=== PATIENT | male | born 1935 | race Caucasian/White ===

== ENCOUNTER 2022-10-01 14:53 | Inpatient (IN) | payer MEDICARE, OTHER ==
[~2022-10-01] VITALS: Ht 182.9 cm; Wt 85.8 kg
--- NOTE | 2022-10-01 14:55 | NUR ---
RECEVED PT 86 YRS MALE CAME BY HEIDI FROM HOME C/O SYNCOPY X2 TODAY AWAKE AND ALERT respiration spon and easy
--- NOTE | 2022-10-01 15:00 | NUR ---
SEEN BY DR. MORRIS
--- NOTE | 2022-10-01 15:05 | NUR ---
BLOOD DROW BY LAB TACH
--- NOTE | 2022-10-01 15:10 | NUR ---
C XRAY DONE AT BED SIDE
[2022-10-01] MEDS ORDERED: IV NS 0.9% 1,000 ML BAG IV ONE (15:30)
[2022-10-01 15:32] LABS: BASOPHILS % (AUTO) 0.5 % (0.0-2.0); EOSINOPHILS % (AUTO) 0.9 % (0.0-6.0); HEMATOCRIT 39 % (39-51); HEMOGLOBIN 12.6 g/dL (13.5-17.5); LYMPHOCYTES # (AUTO) 1.9 K/uL (0.8-4.8); LYMPHOCYTES % (AUTO) 23.2 % (20.0-44.0); MEAN CORPUSCULAR HGB CONC 32 g/dl (31.0-36.0); MEAN CORPUSCULAR VOLUME 84 fL (80-96); MONOCYTES # (AUTO) 0.8 K/uL (0.1-1.30); MONOCYTES % (AUTO) 9.9 % (2.0-12.0); NEUTROPHILS # (AUTO) 5.4 K/uL (1.8-8.9); NEUTROPHILS % (AUTO) 65.5 % (43.0-81.0); PLATELET COUNT (AUTO) 208 K/uL (150-450); RED BLOOD CELL COUNT(AUTO) 4.67 MIL/uL (4.5-6.0); WHITE BLOOD COUNT (AUTO) 8.3 K/uL (4.3-11.0)
[2022-10-01] MEDS ORDERED: AMLO-212 PO ×2 (15:39→19:12)
[2022-10-01] MEDS ORDERED: LEVO125T8 PO (15:39)
[2022-10-01] MEDS ORDERED: ROSU20TA32 PO (15:39)
[2022-10-01] MEDS ORDERED: ALLO300T2 PO (15:39)
[2022-10-01 15:42] LABS: CARBON DIOXIDE 25 mmol/L (21-32); CHLORIDE 106 mmol/L (98-107); CREATININE 1.6 mg/dL (0.6-1.3); GLUCOSE 116 mg/dL (74-106); POTASSIUM 3.7 mmol/L (3.5-5.1); SODIUM SERUM 141 mmol/L (136-145); UREA NITROGEN, BLOOD 20 mg/dL (7-18)
--- NOTE | 2022-10-01 15:50 | NUR ---
MOVE SHEET SUBMITTED.
[2022-10-01 15:55] LABS: ALANINE AMINOTRANSFERASE 24 U/L (12-78); ALBUMIN 3.3 g/dL (3.4-5.0); ALKALINE PHOSPHATASE 47 U/L (46-116); ASPARTATE AMINOTRANSFERASE 21 U/L (15-37); BILIRUBIN,DIRECT 0.2 mg/dL (0.0-0.2); BILIRUBIN,TOTAL 0.9 mg/dL (0.2-1.0); TOTAL PROTEIN, SERUM 6.6 g/dL (6.4-8.2)
--- NOTE | 2022-10-01 16:05 | NUR ---
COVID SWAB TAKEN
[2022-10-01] MEDS ORDERED: MAG HYDROX/AL HYDROX/SIMETH 30 ML UDC PO PRN (17:00)
[2022-10-01] MEDS ORDERED: Z GUARD REMEDY 4 OZ OINT TP PRN (17:00)
[2022-10-01] MEDS ORDERED: TEMAZEPAM 15 MG CAPSULE PO PRN (17:00)
[2022-10-01] MEDS ORDERED: ONDANSETRON HCL/PF 4 MG/2 ML VIAL IVP PRN (17:00)
[2022-10-01] MEDS ORDERED: ENOXAPARIN SODIUM 30 MG/0.3 ML DISP.SYRIN SQ SCH (17:00)
[2022-10-01] MEDS ORDERED: HYDROCODONE/APAP 5/325MG TABLET PO PRN (17:00)
[2022-10-01] MEDS ORDERED: ACETAMINOPHEN 325 MG TABLET PO PRN (17:00)
[2022-10-01] MEDS ORDERED: MAGNESIUM HYDROXIDE 30 ML UDC PO PRN (17:00)
--- NOTE | 2022-10-01 17:00 | NUR ---
GOT BED 310-2
--- NOTE | 2022-10-01 17:30 | NUR ---
PT EAT SWALLOW NO DIFFECULTY
[2022-10-01] MEDS: ATORVASTATIN 40 MG TABLET PO SCH ×2 (18:00→21:24)
[2022-10-01] MEDS: IV NS 0.9% 1,000 ML IV PRN (18:15)
[2022-10-01 18:21] VITALS: BP_SYST 122; BP_SYST 143; BP_SYST 145; BP_DIAS 80; BP_DIAS 82; BP_DIAS 83
--- NOTE | 2022-10-01 18:47 | NUR ---
RN NOTES LIPITOR 40MG TAB DUE 1800 NOT GIVEN, DUPLICATE ORDER. CATCH BASIN CLEANER NURSE WILL GIVE MEDICATION AT 2200.
--- NOTE | 2022-10-01 18:48 | NUR ---
CONTRACT TECHNICIANRN RESEARCH/CLOSING NOTES PT ADMITTED TO UNIT VIA [facility] AT 1805 ACCOMPANIED BY Keisha BACON WITH DX OF SYNCOPE WITH SECONDARY DX OF LACTIC ACIDOSIS. PT IS A/O X4, ABLE TO MAKE NEEDS KNOWN, NO C/O PAIN OR DISCOMFORTS AT THIS TIME. PT ORIENTED TO STAFF AND ROOM. V/S TAKEN, STABLE AND RECORDED. ORTHOSTATIC BP TAKEN AND RECORDED. PT ON ROOM AIR, TOLERATING WELL, BREATHING EVEN AND UNLABORED, NO ACUTE RESPIRATORY DISTRESS NOTED. SKIN IS INTACT, PHOTO OF DISCOLORATION ON LLE TAKEN AND FILED ON HIS CHART. IV ACCESS ON RIGHT AC #18G INTACT AND PATENT, IVF OF NS @ 75ML/HR INITIATED PER MD ORDER. LUNGS CLEAR ON AUSCULTATION. ABDOMEN SOFT, FIRM AND NON-DISTENDED WITH POSITIVE BOWEL SOUNDS PRESENT. PT PLACED ON EXTERNAL CONSULTING PRACTICE MANAGER WITH CURRENT READING OF NSR WITH 1ST DEGREE HEART BLOCK, HR 70BPM, NO C/O CARDIAC DISTRESS VOICED. SAFETY PRECAUTIONS IMPLEMENTED: BED IN LOWEST LOCKED POSITION, SIDE RAILS UP X2, CALL LIGHT AND TRAY TABLE PLACED W/I EASY REACH OF PT. WILL CONTINUE TO MONITOR PT.
--- NOTE | 2022-10-01 19:30 | NUR ---
JACQUARD LOOM CARPET WEAVER OPENING NOTE RECEIVED PATIENT, AWAKE, ALERT AND ORIENTED X4 WITH FAMILY AT BEDSIDE. AFEBRILE AND NOT IN ANY FORM OF ACUTE DISTRESS. BREATHING EVEN AND NON LABORED. NO C/O PAIN OR DISCOMFORT AT THIS TIME. ON TELEMONITORING WITH CURRENT READING OF SR WITH 1ST DEGREE BLOCK 70. WITH IV ACCESS ON RAC 18G RUNNING WITH NS AT 75ML/HR. SAFETY MEASURES IN PLACE. KEPT BED IN LOCKED AND IN LOW POSITION. SIDE RAILS UP X2. ADVISED TO USE THE CALL LIGHT WHEN IN NEED OF ASSISTANCE.
[2022-10-01 20:00] VITALS: BP 140/82
--- NOTE | 2022-10-01 21:24 | NUR ---
PREMIUM AUDITOR NOTE PATIENT REFUSED TO TAKE LIPITOR AND SAID THAT HE ALREADY TOOK HIS CHOLESTEROL PILL AT HOME PRIOR TO ADMISSION. HIS CLAIM WAS ALSO BACKED UP BY HIS WHO WAS AT BEDSIDE EARLIER DURING ROUNDS.
[2022-10-01 21:50] LABS: BILIRUBIN,URINE NEGATIVE (NEGATIVE); COLOR,URINE YELLOW (YELLOW); LEUKOCYTE ESTERASE ,URINE NEGATIVE (NEGATIVE); NITRITE, URINE NEGATIVE (NEGATIVE); PROTEIN,URINE NEGATIVE (NEGATIVE); UGLUCOSE NEGATIVE (NEGATIVE); UROBILINOGEN,URINE 0.2 EU/dL (0.2)
[2022-10-01 22:01] LABS: BACTERIA,URINE None seen /HPF (None Seen); RBC,URINE 0-2 /HPF (0-2); URINE AMORPHOUS PHOSPHATES Few /HPF (None Seen); WBC,URINE 0-2 /HPF (0-3)
[2022-10-02] VITALS: BP 142/78
[2022-10-02 04:00] VITALS: BP 144/89
[2022-10-02 05:50] LABS: BASOPHILS % (AUTO) 0.4 % (0.0-2.0); EOSINOPHILS % (AUTO) 1.2 % (0.0-6.0); HEMATOCRIT 39 % (39-51); HEMOGLOBIN 12.6 g/dL (13.5-17.5); LYMPHOCYTES # (AUTO) 1.6 K/uL (0.8-4.8); LYMPHOCYTES % (AUTO) 21.8 % (20.0-44.0); MEAN CORPUSCULAR HGB CONC 33 g/dl (31.0-36.0); MEAN CORPUSCULAR VOLUME 84 fL (80-96); MONOCYTES # (AUTO) 0.9 K/uL (0.1-1.30); MONOCYTES % (AUTO) 12.6 % (2.0-12.0); NEUTROPHILS # (AUTO) 4.8 K/uL (1.8-8.9); PLATELET COUNT (AUTO) 182 K/uL (150-450); RED BLOOD CELL COUNT(AUTO) 4.58 MIL/uL (4.5-6.0); WHITE BLOOD COUNT (AUTO) 7.5 K/uL (4.3-11.0)
[2022-10-02 06:09] LABS: CALCIUM, SERUM 8.6 mg/dL (8.5-10.1); CREATININE 1.1 mg/dL (0.6-1.3); MAGNESIUM 2.1 mg/dL (1.8-2.4); PHOSPHORUS 3.1 mg/dL (2.5-4.9); POTASSIUM 3.3 mmol/L (3.5-5.1)
[2022-10-02] MEDS: IV NS 0.9% 1,000 ML IV PRN (06:15)
[2022-10-02 06:21] LABS: THYROID STIMULATING HORMONE 0.12 uIU/mL (0.358-3.74)
--- NOTE | 2022-10-02 06:30 | NUR ---
ESTATE MANAGER CLOSING NOTE PATIENT IN BED, ASLEEP BUT EASY TO AROUSE AND RESPONSIVE. ALERT AND ORIENTED X4. AFEBRILE AND NOT IN ANY FORM OF ACUTE DISTRESS. BREATHING EVEN AND NON LABORED. NO C/O PAIN OR DISCOMFORT AT THIS TIME. ON TELEMONITORING WITH CURRENT READING OF SR 67 WITH 1ST DEGREE AVB. WITH IV ACCESS ON RAC 18G RUNNING WITH NS AT 75ML/HR. SAFETY MEASURES IN PLACE. KEPT BED IN LOCKED AND IN LOW POSITION. SIDE RAILS UP X2. ADVISED TO USE THE CALL LIGHT WHEN IN NEED OF ASSISTANCE. ALL NURSING NEEDS ATTENDED. ENDORSED TO INCOMING SHIFT FOR CONTINUITY OF CARE.
[2022-10-02] MEDS ORDERED: PANTOPRAZOLE 40 MG TABLET.DR PO SCH (07:30)
[2022-10-02 08:00] VITALS: BP 146/84
--- NOTE | 2022-10-02 08:03 | NUR ---
RN OPENING NOTE RECEIVED PATIENT IN BED, AO X 4. ABLE TO RESPONDS PHYSICAL STIMULI. RESPIRATORY EVEN AND UNLABORED ON ROOM AIR. IN NO ACUTE DISTRESS OBSERVED. SKIN IS WARM TO TOUCH, KEEP CLEAN/DRY. KEPT ELEVATED HOB FOR ASPIRATION PRECAUTION/ENSURE AIRWAY, AND LOWEST BED POSITIONED. BED ALARM IS ON AT ALL THE TIME FOR SAFETY. CALL LIGHT WITHIN REACH, WILL CONTINUE TO MONITOR
[2022-10-02] MEDS: POTASSIUM CHLORIDE 20 MEQ TAB.PRT.SR PO SCH ×2 (08:49→09:27)
[2022-10-02 09:00] VITALS: BP_SYST 113; BP_SYST 118; BP_DIAS 79; BP_DIAS 81
[2022-10-02] MEDS ORDERED: AMLODIPINE BESYLATE 5 MG TABLET PO SCH (09:00)
[2022-10-02] MEDS ORDERED: ALLOPURINOL 100 MG TABLET PO SCH (09:00)
[2022-10-02] MEDS ORDERED: LEVOTHYROXINE SODIUM 125 MCG TABLET PO SCH (09:00)
--- NOTE | 2022-10-02 13:00 | NUR ---
PATIENT D/C TO HOME, GIVEN DISCHARGE INSTRUCTION INCLUDE MODIFIED DOSAGE OF LEVOTHYROXINE, FOLLOW UP PRIMARY MD AND DR. VIGIL IN ONE WEEK (DR. VIGIL INFO. ATTACHED IN THE EXIT CARE). PATIENT IN STABLE CONDITION, IN NO DISTRESS OBSERVED. REMOVED IV LINE AND ID BAND BEFORE PATIENT LEAVE. PATIENT LEFT FACILITY ACCOMPANIED BY STAFF TO THE PRIVATE CAR.
== END 2022-10-02 13:05 | disposition home or self-care (01) | DRG 640 ==
LOC: ER 15:10 → TELE 17:47
PROVIDERS: ADMIT Nurse Practitioner Acute Care; ATTEND Nurse Practitioner Acute Care
DX: E86.0 Dehydration (principal); N17.0 Acute kidney failure with tubular necrosis; G91.2 (Idiopathic) normal pressure hydrocephalus; Z20.822 Contact with and (suspected) exposure to COVID-19; I10 Essential (primary) hypertension; E03.9 Hypothyroidism, unspecified; E87.20 Acidosis, unspecified; E78.5 Hyperlipidemia, unspecified; M10.9 Gout, unspecified; R32 Unspecified urinary incontinence; N28.1 Cyst of kidney, acquired
CPT/HCPCS: 36415; 70450-TC; 71045-TC; 76770-TC; 80048-TC; 80061-TC; 80076-TC; 81001; 83605-TC; 83735-TC; 84100-TC; 84439-TC; 84443-TC; 84484-TC; 85025-TC; 87040-TC; 87081-TC; 93307-TC; 97112-TC; 97116-TC; 97530-TC; C9803; G0378; J1650; J7030